=== PATIENT | male | born 1985 | race American Indian/Alaskan Native ===

== ENCOUNTER 2021-02-18 19:18 | Observation (INO) | payer OTHER ==
[~2021-02-18] VITALS: Ht 177.8 cm; Wt 99.4 kg
[~2021-02-18 19:18] MED LIST: AMLODIPINE BESY10 MG PO; AVAPRO300 MG PO; CEPHALEXIN500 MG PO; CIPRO500 MG PO; FLOMAX0.4 MG PO; HYDROCHLOROTH12.5 MG; IBUPROFEN800 MG PO; LISINOPRIL20 MG PO; NORCO 5-325 TA1 EACH PO; PERCOCET 5-3251 EACH PO; UROCIT-K15 MEQ PO; ZOFRAN ODT4 MG PO; ZOFRAN4 MG PO
--- NOTE | 2021-02-19 01:50 | NUR ---
PT ARRIVED TO CCU VIA STRETCHER WITH BELONGINGS. PT ALERT AND ORIENTED AND ABLE TO WALK OVER TO CCU BED WITHOUT DIFFICULTY. PT STATES HE HAS A HEADACHE AT THIS TIME AND RATES IT 4/10. PRN TYLENOL ADMINSITERED ALONG WITH ORDERED MEDICATIONS. PT PROVIDED WITH SANDWICH BOX AND ICE WATER PER HIS REQUEST. PT REPORTS NO FURTHER NEEDS AT THIS TIME, WILL CONTINUE PLAN OF CARE. CALL LIGHT IN REACH, BED IN LOWEST POSITION.
--- NOTE | 2021-02-19 04:39 | EKG ---
[facility] [address] [facility] [place] [address] Signed Normal sinus rhythm Normal ECG When compared with ECG of 11-APR-2017 15:36, No significant change was found Confirmed by HAYDER ROWE MD ([id number]) on 02/19/2021 4:39:43 AM Electronically Signed By: HAYDER ROWE MD 02/19/21 0439 PATIENT NAME: [facility] DATE OF : 85 PHYSICIAN: HAYDER ROWE MD REPORT #: [id number] REPORT IS CONFIDENTIAL AND NOT TO BE RELEASED WITHOUT AUTHORIZATION
--- NOTE | 2021-02-19 05:00 | NUR ---
THIS RN IN TO ADMINISTER PRN LABETALOL FOR A BP MAINTAINING IN THE 150-160 RANGE. PT SLEEPING IN BED BUT AWOKE EASILY. PRN LABETALOL ADMINISTERED. PT REPORTS NO FURTHER NEEDS AT THIS TIME ASIDE FROM FRESH WATER WHICH WAS PROVIDED. WILL CONTINUE PLAN OF CARE. CALL LIGHT IN REACH, BED IN LOWEST POSITION.
--- NOTE | 2021-02-19 05:30 | NUR ---
THIS RN IN TO CHECK ON PT. PT LAYING IN BED AWAKE AND ALERT AND JUST HAD HIS LABS DRAWN. PT REPORTS NO FURTHER NEEDS AT THIS TIME. PT INFORMED OF 2G SODIUM DIET AND PROVIDED WITH MENU PER HIS REQUEST. PT BP AT THIS TIME 147/94 (111). PT REPORTS NO FURTHER NEEDS, WILL CONTINUE PLAN OF CARE. CALL LIGHT IN REACH, BED IN LOWEST POSITION.
--- NOTE | 2021-02-19 06:40 | NUR ---
RESPONDED TO PT CALL LIGHT. PT SITTING UP IN BED AND STATED THAT HE NEEDED TO VOID. PT ABLE TO WALK OVER TO BATHROOM WITHOUT ASSISTANCE AND BACK TO BED. PT REPORTS NO FURTHER NEEDS, FRESH ICE WATER PROVIDED, WILL CONTINUE PLAN OF CARE. CALL LIGHT IN REACH, BED IN LOWEST POSITION.
--- NOTE | 2021-02-19 08:21 | NUR ---
IN PATIENT'S ROOM FOR ASSESSMENT AND RESIDENTIAL CONCIERGE. PATIENT STATES HE IS ONLY HAVING A MILD HEADACHE THIS AM. PT'S EPIGASTRIC PAIN HAS RESOLVED, BUT STATES IF HE MOVES AROUND A CERTAIN WAY, DOES HAVE SOME LOWER FLANK PAIN ON BOTH SIDES. PLAN OF CARE DISCUSSED WITH PATIENT. PATIENT CURIOUS WHEN HE WILL BE ABLE TO DISCHARGE HOME - WILL DISCUSS WITH DR. ROWE WHEN SHE SEES PATIENT. AM MEDS GIVEN. PATIENT WAITING ON BREAKFAST NOW.
--- NOTE | 2021-02-19 08:46 | NUR ---
pt used call light, need to use the bathroom. CYLINDER INSPECTOR assisted pt. Pt. returned to bed. Fresh water given, pt washed face and hands, bed done. no other needs at this time. call light with in reach .
--- NOTE | 2021-02-19 09:17 | NUR ---
PATIENT'S BLOOD PRESSURES ELEVATED AGAIN AND GIVEN PRN LABETALOL. DR. ROWE NOTIFIED.
[2021-02-19] MEDS ORDERED: ZESTRIL40 MG PO ×2 (09:31→10:00)
[2021-02-19] MEDS ORDERED: FLONASE ALLERG9.9 ML NAS (09:32)
--- NOTE | 2021-02-19 09:48 | NUR ---
DR. ROWE NOW IN ROOM SEEING PATIENT. PLAN TO HAVE PATIENT DISCHARGED TODAY LIKELY.
[2021-02-19] MEDS ORDERED: HYDRALAZINE HCL10 MG PO (09:59)
[2021-02-19] MEDS ORDERED: LO-DOSE ASPIRIN81 MG PO (10:00)
--- NOTE | 2021-02-19 12:12 | NUR ---
PATIENT DISCHARGED TO HOME WITH HIS BROTHER. PATIENT'S PCP WAS CALLED - DR. TRIPP - AND MESSAGE LEFT FOR A FOLLOW UP APPT TO BE MADE THIS WEEK FOR THIS PATIENT, AND TO HAVE A CT SCAN LATER THIS WEEK OF HIS ABDOMEN WITH CONTRAST. PATIENT GIVEN DISCHARGE INSTUCTIONS WRITTEN AND GIVEN HIS PRESCRIPTION TO BE FILLED AT [facility]. PT'S BLOOD PRESSURE BEFORE LEAVING WAS 174/115 - PRN HYDRALAZINE GIVEN ( SEE EMAR). PT HAS A PRN PRESCRIPTION FOR THIS AT HOME. DISCHARGE SUMMARY FAXED TO [facility] WELL.
== END 2021-02-19 12:10 | disposition home or self-care (01) ==
LOC: ED 19:18 → CCU 19:20
PROVIDERS: ADMIT Internal Medicine; ATTEND Internal Medicine
DX: I16.9 Hypertensive crisis, unspecified (principal); R10.11 Right upper quadrant pain; I10 Essential (primary) hypertension
CPT/HCPCS: 36415; 71275; 74174; 80048; 80053; 81001; 83690; 83735; 84244; 85025; 93005; 93010; 99285-25; C9113; C9803; J1170; J2405; Q9967; U0003